=== PATIENT | male | born 1960 | race Caucasian/White ===

== ENCOUNTER 2018-12-23 06:30 | Emergency (ER) | payer BC ==
[2018-12-23] MEDS: DEXAMETHASONE 10 MG/ML 1 ML INJ IM (07:25)
[2018-12-23] MEDS: KETOROLAC 30 MG INJ IM (07:25)
== END 2018-12-23 07:59 | disposition home or self-care (01) ==
LOC: FTE 06:30
DX: J02.9 Acute pharyngitis, unspecified (principal); I10 Essential (primary) hypertension
CPT/HCPCS: 70360; 93005; 96372; 99284-25